=== PATIENT | male | born 1945 | race Caucasian/White ===

== ENCOUNTER 2017-01-02 02:23 | Emergency (ER) | payer MEDICARE, MEDICAID ==
[~2017-01-02 02:23] MED LIST: ATIVAN0.5 MG PO; COLACE100 MG PO; DULCOLAX10 MG RECTAL; FLEET ENEMA133 M1 RECTAL; GAS RELIEF80 MG PO; LIPITOR10 MG PO; LOPRESSOR25 MG PO; MILK OF MAGNESI30 ML PO; MUCINEX600 MG PO; NORCO 325-5 MG1 TAB PO; NORVASC5 MG PO; PROTONIX20 MG PO; REMERON30 MG PO; SPIRIVA18 MCG INH; SYMBICORT 160-4.6 GM INH; VENTOLIN HFA18 GM INH; VITAMIN B-12500 MCG PO; ZOLOFT50 MG PO
== END 2017-01-02 11:34 | disposition short-term general hospital (02) ==
LOC: ER 02:27
DX: S32.302A Unspecified fracture of left ilium, initial encounter for closed fracture (principal); J44.9 Chronic obstructive pulmonary disease, unspecified; Z79.899 Other long term (current) drug therapy; W18.30XA Fall on same level, unspecified, initial encounter
CPT/HCPCS: 73502-LT; J2270; J2405